=== PATIENT | male | born 1960 | race Native Hawaiian/Other Pacific Islander ===

== ENCOUNTER 2024-09-12 10:30 | Outpatient (CLI) | payer BC, MEDICARE, SELFPAY ==
[2024-09-12 08:46] LABS: Abs Immature Grans 0.03 10^3/uL (0.0-0.06); Absolute Basophil Count 0.02 10^3/uL (0.0-0.2); Absolute Eosinophil Count 0.06 10^3/uL (0.0-0.7); Absolute Lymphocyte Count 0.25 10^3/uL (1.2-3.4); Absolute Monocyte Count 0.44 10^3/uL (0.1-0.8); Absolute Neutrophil Count 3.58 10^3/uL (1.2-6.7); Basophils % 0.5 %; Eosinophils % 1.4 %; HCT 34.7 % (40.0-50.0); HGB 11.7 g/dL (13.5-17.5); Immature Grans % 0.7 %; Lymphocytes % 5.7 %; MCH 33.1 pg (27.0-33.0); MCHC 33.7 % (32.0-36.0); MCV 98 fL (80-95); MPV 9.9 fL (8.0-11.0); Neutrophils % 81.7 %; Platelet Count 101 10^3/uL (130-400); RBC 3.53 10^6/uL (4.36-5.78); RDW 13.7 % (11.8-14.1); RDW-SD 49.5 fL; WBC 4.38 10^3/uL (4.4-10.8)
[2024-09-12 09:15] LABS: ALT 46 U/L (16-63); AST 57 U/L (15-37); Albumin 2.3 g/dL (3.4-5.0); Alkaline Phosphatase 402 U/L (46-116); Anion Gap 4.4 mmol/L (3-11); BUN 19 mg/dL (7-18); Bilirubin, Total 2.5 mg/dL (0.2-1.0); CO2 28.6 mmol/L (21.0-32.0); Calcium 9.4 mg/dL (8.5-10.1); Chloride 103 mmol/L (98-107); Estimated GFR 83.52 (mL/min/1.73m2); Glucose 153 mg/dL (74-106); Magnesium 1.9 mg/dL (1.8-2.4); Potassium 4.5 mmol/L (3.5-5.1); Sodium 136 mmol/L (136-145); TSH 4.44 uIU/mL (0.36-3.74); Total Protein 6.7 g/dL (6.4-8.2)
[2024-09-13 09:58] LABS: AFP Tumor Marker 45.2 ng/mL (<8.1)
[2024-09-13 11:42] LABS: CA 19-9 6113 U/mL (<35)
== END 2024-09-12 10:31 | disposition home or self-care (01) ==
LOC: LBO 10:34
PROVIDERS: PCP Internal Medicine; Visit Provider Internal Medicine Hematology & Oncology
DX: Z79.899 Other long term (current) drug therapy (principal); C22.1 Intrahepatic bile duct carcinoma
CPT/HCPCS: 36415; 80053; 82105; 83735; 84439; 84443; 85025; 86301

== ENCOUNTER 2024-09-19 01:03 | Outpatient (CLI) | payer BC, MEDICARE, SELFPAY ==
[2024-09-19 08:27] LABS: Abs Immature Grans 0.03 10^3/uL (0.0-0.06); Absolute Basophil Count 0.01 10^3/uL (0.0-0.2); Absolute Eosinophil Count 0.02 10^3/uL (0.0-0.7); Absolute Lymphocyte Count 0.18 10^3/uL (1.2-3.4); Absolute Monocyte Count 0.24 10^3/uL (0.1-0.8); Absolute Neutrophil Count 1.89 10^3/uL (1.2-6.7); Basophils % 0.4 %; Eosinophils % 0.8 %; HCT 30.9 % (40.0-50.0); HGB 10.5 g/dL (13.5-17.5); Immature Grans % 1.3 %; Lymphocytes % 7.6 %; MCH 33.2 pg (27.0-33.0); MCV 98 fL (80-95); MPV 10.5 fL (8.0-11.0); Monocytes % 10.1 %; Neutrophils % 79.8 %; RBC 3.16 10^6/uL (4.36-5.78); RDW 13.1 % (11.8-14.1); RDW-SD 46.9 fL; WBC 2.37 10^3/uL (4.4-10.8)
[2024-09-19 08:47] LABS: Platelet Count 56 10^3/uL (130-400); RBC Morphology Normal
[2024-09-19 09:01] LABS: ALT 97 U/L (16-63); AST 59 U/L (15-37); Albumin 2.3 g/dL (3.4-5.0); Alkaline Phosphatase 307 U/L (46-116); Anion Gap 3.8 mmol/L (3-11); BUN 24 mg/dL (7-18); Bilirubin, Total 2.6 mg/dL (0.2-1.0); CO2 31.2 mmol/L (21.0-32.0); Calcium 9.9 mg/dL (8.5-10.1); Chloride 104 mmol/L (98-107); Estimated GFR 83.52 (mL/min/1.73m2); FREE T4 1.63 ng/dL (0.76-1.46); Glucose 172 mg/dL (74-106); Magnesium 1.7 mg/dL (1.8-2.4); Potassium 4.3 mmol/L (3.5-5.1); Sodium 139 mmol/L (136-145); TSH 2.65 uIU/mL (0.36-3.74); Total Protein 6.4 g/dL (6.4-8.2)
[2024-09-20 09:28] LABS: AFP Tumor Marker 38.9 ng/mL (<8.1)
[2024-09-20 13:51] LABS: CA 19-9 6705 U/mL (<35)
== END 2024-09-19 01:04 | disposition home or self-care (01) ==
PROVIDERS: PCP Internal Medicine; Visit Provider Internal Medicine Hematology & Oncology
DX: C22.1 Intrahepatic bile duct carcinoma (principal); Z79.899 Other long term (current) drug therapy
CPT/HCPCS: 36415; 80053; 82105; 83735; 84439; 84443; 85025; 86301

== ENCOUNTER 2024-10-03 10:21 | Outpatient (CLI) | payer BC, MEDICARE, SELFPAY ==
[2024-10-03 10:35] LABS: Abs Immature Grans 0.08 10^3/uL (0.0-0.06); HCT 31.8 % (40.0-50.0); HGB 10.7 g/dL (13.5-17.5); Immature Grans % 3.2 %; MCH 33.3 pg (27.0-33.0); MCHC 33.6 % (32.0-36.0); MCV 99 fL (80-95); MPV 9.7 fL (8.0-11.0); Platelet Count 187 10^3/uL (130-400); RBC 3.21 10^6/uL (4.36-5.78); RDW 16.6 % (11.8-14.1); RDW-SD 59.2 fL; WBC 2.49 10^3/uL (4.4-10.8)
[2024-10-03 11:00] LABS: ALT 36 U/L (16-63); AST 48 U/L (15-37); Albumin 2.3 g/dL (3.4-5.0); Alkaline Phosphatase 291 U/L (46-116); Anion Gap 7.1 mmol/L (3-11); BUN 26 mg/dL (7-18); Bilirubin, Total 2.7 mg/dL (0.2-1.0); CO2 27.9 mmol/L (21.0-32.0); Calcium 9.6 mg/dL (8.5-10.1); Chloride 104 mmol/L (98-107); Estimated GFR 83.52 (mL/min/1.73m2); Glucose 139 mg/dL (74-106); Magnesium 1.9 mg/dL (1.8-2.4); Potassium 4.0 mmol/L (3.5-5.1); Sodium 139 mmol/L (136-145); TSH 4.25 uIU/mL (0.36-3.74); Total Protein 6.5 g/dL (6.4-8.2)
[2024-10-04 10:10] LABS: CA 19-9 6581 U/mL (<35)
== END 2024-10-03 10:22 | disposition home or self-care (01) ==
LOC: LBO 10:22
PROVIDERS: PCP Internal Medicine; Visit Provider Internal Medicine Hematology & Oncology
DX: C22.1 Intrahepatic bile duct carcinoma (principal); Z79.899 Other long term (current) drug therapy
CPT/HCPCS: 36415; 80053; 82105; 83735; 84439; 84443; 85025; 86301

== ENCOUNTER 2024-10-29 10:02 | Outpatient (CLI) | payer BC, MEDICARE, SELFPAY ==
[2024-10-29 10:29] LABS: Abs Immature Grans 0.12 10^3/uL (0.0-0.06); HCT 33.6 % (40.0-50.0); HGB 11.1 g/dL (13.5-17.5); Immature Grans % 2.0 %; MCH 33.1 pg (27.0-33.0); MCHC 33.0 % (32.0-36.0); MCV 100 fL (80-95); MPV 10.4 fL (8.0-11.0); Platelet Count 153 10^3/uL (130-400); RBC 3.35 10^6/uL (4.36-5.78); RDW 16.9 % (11.8-14.1); RDW-SD 62.5 fL; WBC 5.94 10^3/uL (4.4-10.8)
[2024-10-29 10:55] LABS: ALT 36 U/L (16-63); AST 53 U/L (15-37); Albumin 2.1 g/dL (3.4-5.0); Alkaline Phosphatase 280 U/L (46-116); Anion Gap 4.8 mmol/L (3-11); BUN 30 mg/dL (7-18); Bilirubin, Total 1.7 mg/dL (0.2-1.0); CO2 29.2 mmol/L (21.0-32.0); Calcium 9.4 mg/dL (8.5-10.1); Chloride 101 mmol/L (98-107); Estimated GFR 74.50 (mL/min/1.73m2); Glucose 250 mg/dL (74-106); Magnesium 1.9 mg/dL (1.8-2.4); Potassium 4.6 mmol/L (3.5-5.1); Sodium 135 mmol/L (136-145); TSH 4.55 uIU/mL (0.36-3.74); Total Protein 6.6 g/dL (6.4-8.2)
[2024-10-30 14:01] LABS: CA 19-9 11743 U/mL (<35)
== END 2024-10-29 10:03 | disposition home or self-care (01) ==
LOC: LBO 10:02
PROVIDERS: PCP Internal Medicine; Visit Provider Internal Medicine Hematology & Oncology
DX: C22.1 Intrahepatic bile duct carcinoma (principal); Z79.899 Other long term (current) drug therapy
CPT/HCPCS: 36415; 80053; 82105; 83735; 84439; 84443; 85025; 86301